=== PATIENT | female | born 1940 | race Two or more races ===

== ENCOUNTER 2016-08-05 18:58 | Emergency (ER) | payer BC, OTHER ==
[2016-08-05 19:34] VITALS: BMI 29.2
--- NOTE | 2016-08-05 20:09 | PDOC ---
History of Present Illness - General Chief Complaint: Nasal Bleeding Stated Complaint: BLEEDING FROM NOSE Time Seen by Provider: 08/05/16 19:31 History Source: Patient, Family Exam Limitations: Language Barrier - History of Present Illness Initial Comments: 08/05/16 19:52 76yo Female patient w/ PmHx: HTN, HLD, GERD presents to ED c/o epistaxis. Patient states symptoms began 2-3 months ago but resolved, then recurred 2-3 days ago and resolved. Patient stopped taking her Plavix 5 days ago, which she states she was prescribed years ago, but does not know why she is taking it per patient daughter. She now reports episode of nose bleeding today prior to her arrival which is now controlled. Associated sinus pressure and headache. + Antiplatelet use. Timing/Duration: intermittent, resolved prior to arrival Severity: moderate Modifying Factors: worse with: cold therapy, eating, immobilization, medication , movement, rest, other Associated Symptoms: reports: headaches Aspirin Received prior to arrival: No: no aspirin today, unknown, 81 mg x 1, 81 mg x 2, 81 mg x 3, 81 mg x 4, 325 mg x 1, provided at home, provided by EMS, provided by ED Asa Contraindications(Core Measure): Yes: Plavix Past History - Travel Traveled outside of the country in the last 30 days: No Close contact w/someone who was outside of country & ill: No - Past Medical History Allergies/Adverse Reactions: Allergies Allergy/AdvReac Type Severity Reaction Status Date / Time aspirin AdvReac Verified 08/05/16 19:24 Home Medications: Ambulatory Orders NK [No Known Home Medication] 08/05/16 Cardiac Disorders: Yes HTN: Yes Hypercholesterolemia: Yes - Psycho/Social/Smoking Cessation Hx Suicidal Ideation: No Smoking History: Never smoked Review of Systems - Review of Systems Able to Perform ROS?: Yes Is the patient limited Lithuanian proficient: No Constitutional: No: Chills, Fever HEENTM: Yes: Nose Congestion, Difficulty Swallowing. No: Eye Pain, Nose Pain, Throat Pain, Throat Swelling, Mouth Pain, Mouth Swelling Respiratory: No: Cough, Shortness of Breath, Stridor, Wheezing Cardiac (ROS): No: Chest Pain, Lightheadedness, Palpitations, Syncope, Chest Tightness ABD/GI: No: Constipated, Diarrhea, Nausea, Poor Appetite, Poor Fluid Intake, Vomiting : No: Dysuria Musculoskeletal: No: Back Pain Integumentary: No: Bruising, Erythema, Rash, Sweating Neurological: Yes: Headache. No: Numbness, Paresthesia, Seizure, Tremors, Weakness, Ataxia All Other Systems: Reviewed and Negative *Physical Exam - Vital Signs Last Vital Signs Temp Pulse Resp BP Pulse Ox 98.1 F 69 18 145/63 98 08/05/16 19:19 08/05/16 19:19 08/05/16 19:19 08/05/16 19:19 08/05/16 19:19 - Physical Exam General Appearance: Yes: Nourished, Appropriately Dressed. No: Apparent Distress, Mild Distress, Moderate Distress, Severe Distress HEENT: positive: EOMI, LUIS FERNANDO, Normal ENT Inspection, Normal Voice, Symmetrical, TMs Normal, Pharynx Normal, Nasal Congestion, Sinus Tenderness. negative: Pharyngeal Erythema, Tonsillar Exudate, Tonsillar Erythema, Rhinorrhea, TM Bulging, TM Dull, TM Erythema Neck: positive: Trachea midline, Supple. negative: Rigid, Stridor, Lymphadenopathy (R), Lymphadenopathy (L) Respiratory/Chest: positive: Lungs Clear, Normal Breath Sounds. negative: Chest Tender, Respiratory Distress, Accessory Muscle Use, Labored Respiration, Rapid RR, Stridor, Wheezing Cardiovascular: positive: Regular Rhythm, Regular Rate. negative: Edema, JVD, Murmur Gastrointestinal/Abdominal: positive: Normal Bowel Sounds, Soft. negative: Distended, Guarding, Rebound, Tenderness Musculoskeletal: positive: Normal Inspection. negative: CVA Tenderness Extremity: positive: Normal Capillary Refill, Normal Inspection, Normal Range of Motion. negative: Pedal Edema, Swelling Integumentary: positive: Normal Color, Dry, Warm. 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 NML intact, Fully Oriented, Alert, Normal Mood/ Affect, Normal Response, Motor Strength 5/5 ED Treatment Course - LABORATORY CBC & Chemistry Diagram: 08/05/16 20:05 08/05/16 20:05 - RADIOLOGY Radiology Studies Ordered: Category Date Time Status HEAD CT WITHOUT CONTRAST [CT] Stat CT Scan 08/05/16 19:[address] W/O CONTRAST [CT] Stat CT Scan 08/05/16 19:49 Ordered *DC/Admit/Observation/Transfer Diagnosis at time of Disposition: Recurrent epistaxis Headache Qualifiers: Headache type: unspecified Headache chronicity pattern: acute headache Intractability: not intractable Qualified Code(s): R51 - Headache - Discharge Dispostion Disposition: HOME Condition at time of disposition: Improved Admit: No - Patient Instructions Printed Discharge Instructions: DI for Nosebleed Additional Instructions: FOLLOW UP WITH DR. WASHINGTON. CALL TO SCHEDULE APPOINTMENT. CONTINUE TO TAKE YOUR MEDICATIONS PRESCRIBED. RETURN IF SYMPTOMS WORSEN OR ANY CONCERNS FOR FURTHER EVALUATION. IF NOSE BLEED OCCURS AGAIN, PINCH NOSE AND HOLD FOR 20 MINS WHILE LEANING FORWARD, YOU MAY ALSO APPLY COLD COMPRESS TO BRIDGE OF NOSE WHILE LEANING FORWARD. RETURN IF SYMPTOMS WORSEN, OR ANY CONCERNS FOR FURTHER EVALUATION. Print Language: MONGOLIAN
[2016-08-05 20:25] LABS: MCH 27.4 pg (25.7-33.7); MCHC 32.7 g/dl (32.0-36.0); MEAN PLT VOLUME 8.3 fl (7.5-11.1); PLATELET COUNT 257 K/MM3 (134-434); RDW 14.3 % (11.6-15.6); URINE APPEARANCE CLEAR; URINE BILIRUBIN NEGATIVE (NEGATIVE); URINE BLOOD 2+ (NEGATIVE); URINE COLOR STRAW; URINE GLUCOSE (UA) NEGATIVE (NEGATIVE); URINE KETONE NEGATIVE (NEGATIVE); URINE LEUK ESTERASE NEGATIVE (NEGATIVE); URINE NITRITE NEGATIVE (NEGATIVE); URINE PROTEIN NEGATIVE (NEGATIVE); URINE UROBILINOGEN NEGATIVE E.U./dl (0.2-1.0); WHITE BLOOD COUNT 7.9 K/mm3 (4.0-10.0)
[2016-08-05 20:26] LABS: URINE BACTERIA RARE /hpf (NONE SEEN); URINE MUCUS RARE; URINE RBC 9 /hpf (0-3); URINE WBC 1 /hpf (3-5)
[2016-08-05 20:39] LABS: INR 1.12 (0.82-1.09); PROTHROMBIN TIME (PATIENT) 12.3 SEC (9.98-11.88)
[2016-08-05 20:41] LABS: ACTIVATED PTT 35.1 SECONDS (26.9-34.4)
[2016-08-05 21:00] LABS: PLATELET ESTIMATE ADEQUATE (NORMAL)
[2016-08-05 21:08] LABS: ANION GAP 10 (8-16); BILIRUBIN,TOTAL 0.3 mg/dL (0.2-1.0); CALCIUM 9.9 mg/dL (8.5-10.1); CO2 27 mmol/L (21-32); CREATININE 0.9 mg/dL (0.55-1.02); GLUCOSE,RANDOM 117 mg/dL (74-106); SGOT/AST 20 U/L (15-37); SGPT/ALT 23 U/L (12-78); TOT PROT 7.7 g/dl (6.4-8.2)
[2016-08-05 21:09] LABS: ALK PHOS 89 U/L (45-117)
[2016-08-05 21:54] VITALS: BP 135/80; PULSE 87; TEMP 98.3
== END 2016-08-05 21:54 | disposition home or self-care (01) ==
LOC: JER 18:58
DX: R04.0 Epistaxis (principal); R51 Headache; E78.00 Pure hypercholesterolemia, unspecified; K21.9 Gastro-esophageal reflux disease without esophagitis
CPT/HCPCS: 36415; 70450-TC; 70486-TC; 80053; 81003; 81015; 85025; 85610; 85730; 99282-25

== ENCOUNTER 2018-11-13 23:08 | Emergency (ER) | payer OTHER ==
[2018-11-13 23:15] VITALS: BP 151/69; PULSE 54; TEMP 98.2; BMI 28.5
--- NOTE | 2018-11-13 23:46 | PDOC ---
History of Present Illness - General Chief Complaint: Edema Stated Complaint: SENT BY PCP/LT LOWER LEG SWELLING - History of Present Illness Initial Comments: The pt is an 78F w/ a history of HTN, HLD, GERD, s/p thyroidectomy who presents for evaluation for several days of LLE swelling and anterior LLE pain who was evaluated at an urgent care tonight and was sent for concern of DVT. Pt reports history of BLE swelling that is intermittent, waxes and wanes, but is never associated with leg pain. Denies a history of DM, neuropathy, or recent injury/fall. She reports LLE leg pain that is 'pinching'/tingling, anterior lower leg pain that does not radiate, is not exacerbated or alleviated by anything she can identify. 11/13/18 23:46 Past History - Past Medical History Allergies/Adverse Reactions: Allergies Allergy/AdvReac Type Severity Reaction Status Date / Time aspirin AdvReac Verified 11/13/18 23:16 Home Medications: Ambulatory Orders Brimonidine Tartrate/Timolol [Combigan Eye Drops] 5 ml OP DAILY 11/14/18 Brinzolamide [Azopt] 5 ml OP DAILY 11/14/18 Bromfenac Sodium [Bromsite] 5 ml OP DAILY 11/14/18 Clopidogrel Bisulfate [Clopidogrel] 75 mg PO DAILY 11/14/18 Levothyroxine [Synthroid -] 75 mcg PO DAILY 11/14/18 Losartan/Hydrochlorothiazide [Losartan-Hctz 100-25 mg Tab] 1 each PO DAILY 11/14 Meclizine HCl 12.5 mg PO DAILY 11/14/18 Metoprolol Succinate 25 mg PO DAILY 11/14/18 Raloxifene HCl 60 mg PO DAILY 11/14/18 Simvastatin 20 mg PO DAILY 11/14/18 Cardiac Disorders: Yes COPD: No HTN: Yes Hypercholesterolemia: Yes - Suicide/Smoking/Psychosocial Hx Smoking History: Never smoked Have you smoked in the past 12 months: No Information on smoking cessation initiated: No Hx Alcohol Use: No Drug/Substance Use Hx: No Review of Systems - Review of Systems Able to Perform ROS?: Yes Comments:: GENERAL/CONSTITUTIONAL: No fever or chills. No weakness HEAD, EYES, EARS, NOSE AND THROAT: No change in vision. No ear pain or discharge. No sore throat CARDIOVASCULAR: No chest pain or shortness of breath RESPIRATORY: Denies cough, hemoptysis GASTROINTESTINAL: No nausea, vomiting, diarrhea or constipation GENITOURINARY: No dysuria, frequency, or change in urination MUSCULOSKELETAL: +OA SKIN: No rash NEUROLOGIC: No headache, vertigo, loss of consciousness, or change in strength/ sensation ENDOCRINE: No increased thirst. No abnormal weight change HEMATOLOGIC/LYMPHATIC: No anemia, easy bleeding, or history of blood clots ALLERGIC/IMMUNOLOGIC: No hives or skin allergy 11/13/18 23:46 Is the patient limited Martiniquais proficient: No *Physical Exam - Vital Signs Last Vital Signs Temp Pulse Resp BP Pulse Ox 98.2 F 54 L 18 151/69 98 11/13/18 23:12 11/13/18 23:12 11/13/18 23:12 11/13/18 23:12 11/13/18 23:12 - Physical Exam Comments: GENERAL: Awake, alert, and oriented to person/place/time, in no acute distress HEAD: No signs of trauma, normocephalic, atraumatic EYES: PERRLA, EOMI, sclera anicteric, conjunctiva clear ENT: Hearing grossly normal, nares patent, oropharynx clear without exudates. Moist mucosa LUNGS: No distress, speaks in full sentences, clear to auscultation bilaterally HEART: Regular rate and rhythm, normal S1 and S2, no murmurs appreciated, peripheral pulses normal and equal bilaterally ABDOMEN: Soft, nontender, normoactive bowel sounds. No guarding, no rebound EXTREMITIES: LLE swelling to mid-spain w/ anterior TTP; R foot swelling; Moves all extremities independently NEUROLOGICAL: Cranial nerves II through XII grossly intact. Normal speech, normal gait, no focal sensorimotor deficits SKIN: Warm, Dry 11/13/18 23:46 ED Treatment Course - LABORATORY CBC & Chemistry Diagram: 11/14/18 00:31 11/14/18 00:31 Medical Decision Making - Medical Decision Making The pt is an 78F w/ a history of HTN, HLD, GERD, s/p thyroidectomy who presents for evaluation for several days of LLE swelling and anterior LLE pain who [facility] concern of [facility]. ED Course Labs BLE duplex to r/o DVT 11/14/18 00:12 US w/o DVT No leukocytosis No anemia 11/14/18 01:30 Lytes unremarkable LFTs wnl TSH wnl No KELI BNP wnl Plan for D/C w/ PCP f/u Discharge instructions and return precautions given Pt in agreement and verbalized understanding Dispo: home *DC/Admit/Observation/Transfer Diagnosis at time of Disposition: Leg swelling - Discharge Dispostion Disposition: HOME Condition at time of disposition: Stable Decision to Admit order: No - Referrals Referrals: Arely Almeida [Primary Care Provider] - - Patient Instructions Printed Discharge Instructions: DI for Peripheral Edema, Unilateral Additional Instructions: You were seen in the Emergency Department for evaluation of left lower extremity swelling. Your ultrasound was negative for blood clot. Your labs were unremarkable. Maintain your follow up with your primary care provider within a week. Review the handout provided at discharge. Return to the Emergency Department if you develop fevers/chills, chest pain, trouble breathing, worsening swelling, increased pain, lightheadedness, worsening symptom, or any/ new concerning symptoms. - Post Discharge Activity
--- NOTE | 2018-11-14 00:47 | PDOC ---
Documentation entered by Srinivas Mitchell SCRIBE, acting as scribe for Dayana Mathis DO. Dayana Mathis DO: This documentation has been prepared by the Paula mcdermott Xhesika, SCRIBE, under my direction and personally reviewed by me in its entirety. I confirm that the documentation accurately reflects all work, treatment, procedures, and medical decision making performed by me. Attending Attestation - Resident Resident Name: [email or web address] - ED Attending Attestation I have performed the following: I have examined & evaluated the patient, The case was reviewed & discussed with the resident, I agree w/resident's findings & plan, Exceptions are as noted - HPI HPI: 11/14/18 00:50 The patient is an 78 year old female, with a significant PMH of HLD, HTN, and GERD (s/p thyroidectomy) who presents to the emergency department with 2 days of bilateral lower extremity edema. The patient states her pain is intermittent and is associated with anterior LLE pain. The patient states she went to urgent care and was advised to come to the ED for ultrasound and rule out DVT. The patient denies any history of DM, neuropathy, or recent injury/fall. The patient denies chest pain, shortness of breath, headache and dizziness. Denies fever, chills, nausea, vomit, diarrhea and constipation. Denies dysuria, frequency, urgency and hematuria. Allergies: NKA PCP: Arely Santiago - Physicial Exam PE: 11/14/18 00:50 GENERAL: Awake, alert, and fully oriented, in no acute distress NECK: Normal ROM, supple, no lymphadenopathy, JVD, or masses LUNGS: Breath sounds equal, clear to auscultation bilaterally. No wheezes, and no crackles HEART: Regular rate and rhythm, normal S1 and S2, no murmurs, rubs or gallops ABDOMEN: Soft, nontender, normoactive bowel sounds. No guarding, no rebound. No masses EXTREMITIES: (+) mild bilateral lower extremity edema L >R. Normal range of motion, no edema. No clubbing or cyanosis. No cords, erythema, or tenderness NEUROLOGICAL: Cranial nerves II through XII grossly intact. Normal speech, normal gait SKIN: Warm, Dry, normal turgor, no rashes or lesions noted. - Medical Decision Making 11/14/18 00:37 I, Dr. Dayana Mahtis, DO, attest that this document has been prepared under my direction and personally reviewed by me in its entirety. I further attest, that it accurately reflects all work, treatment, procedures and medical decision -making performed by me. 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
[2018-11-14 01:10] LABS: BASO % 0.6 % (0-2.0); HEMOGLOBIN 10.2 GM/dL (10.7-15.3); PLATELET COUNT 198 K/MM3 (134-434); WHITE BLOOD COUNT 4.6 K/mm3 (4.0-10.0)
[2018-11-14 01:17] LABS: EOS % 2.6 % (0-4.5); HEMATOCRIT 31.4 % (32.4-45.2); LYMPH % 41.9 % (8-40); MCH 28.3 pg (25.7-33.7); MCHC 32.5 g/dl (32.0-36.0); MONO % 13.7 % (3.8-10.2); NEUT % 41.2 % (42.8-82.8); RBC 3.61 M/mm3 (3.60-5.2); RDW 14.1 % (11.6-15.6)
[2018-11-14 01:42] LABS: ALBUMIN 3.4 g/dl (3.4-5.0); BILIRUBIN,TOTAL 0.2 mg/dL (0.2-1); BLOOD UREA NITROGEN 34.1 mg/dL (7-18); CALCIUM 7.4 mg/dL (8.5-10.1); CREATININE 1.1 mg/dL (0.55-1.3); N-TERMINAL BNP 368.8 pg/ml (5-450); POTASSIUM 3.9 mmol/L (3.5-5.1)
== END 2018-11-14 02:11 | disposition home or self-care (01) ==
LOC: JER 23:08
DX: M79.89 Other specified soft tissue disorders (principal); I10 Essential (primary) hypertension; E78.5 Hyperlipidemia, unspecified; K21.9 Gastro-esophageal reflux disease without esophagitis
CPT/HCPCS: 36415; 80053; 83880; 84443; 85025; 93970-TC; 99281-25

== ENCOUNTER 2018-12-02 21:20 | Inpatient (IN) | payer OTHER ==
--- NOTE | 2018-12-02 21:23 | PDOC ---
Rapid Medical Evaluation Chief Complaint: Pain Time Seen by Provider: 12/02/18 21:22 Medical Evaluation: Allergies Allergy/AdvReac Type Severity Reaction Status Date / Time aspirin AdvReac Verified 11/13/18 23:16 12/02/18 21:22 I have performed a brief in-person evaluation of this patient. The patient presents with a chief complaint of: abdominal pain today- sent from Pertinent physical exam findings: epigastric tenderness. No guarding I have ordered the following: abd w/u The patient will proceed to the ED for further evaluation. Discharge Disposition - Diagnosis Epigastric pain - Referrals - Patient Instructions - Post Discharge Activity
[2018-12-02 21:26] VITALS: BMI 27.1
[2018-12-02] MEDS ORDERED: SODIUM CHLORIDE 1,000 ML IV STA (23:26)
[2018-12-02] MEDS ORDERED: ONDANSETRON 4 MG/2 ML VIAL IVPUSH ONE (23:26)
[2018-12-02 23:52] LABS: BASO % 0.8 % (0-2.0); HEMATOCRIT 31.2 % (32.4-45.2); HEMOGLOBIN 10.5 GM/dL (10.7-15.3); LYMPH % 23.3 % (8-40); MCH 28.8 pg (25.7-33.7); MCHC 33.6 g/dl (32.0-36.0); MEAN CELL VOLUME 85.9 fl (80-96); MEAN PLT VOLUME 8.6 fl (7.5-11.1); MONO % 4.2 % (3.8-10.2); NEUT % 71.7 % (42.8-82.8); PLATELET COUNT 198 K/MM3 (134-434); RBC 3.63 M/mm3 (3.60-5.2); WHITE BLOOD COUNT 7.6 K/mm3 (4.0-10.0)
[2018-12-03] MEDS ORDERED: ONDANSETRON 4 MG/2 ML VIAL ONE (00:22)
[2018-12-03 00:24] LABS: BILIRUBIN,TOTAL 0.4 mg/dL (0.2-1); BLOOD UREA NITROGEN 29.9 mg/dL (7-18); CALCIUM 9.6 mg/dL (8.5-10.1); CREATININE 1.2 mg/dL (0.55-1.3); POTASSIUM 3.8 mmol/L (3.5-5.1); TOT PROT 7.5 g/dl (6.4-8.2)
[2018-12-03] MEDS ORDERED: morphine CARPU-JECT 2 MG/1 ML DISP.SYRIN IVPUSH ONE (00:57)
[2018-12-03] MEDS ORDERED: MORPHINE SULFATE 2 MG/ML VIAL ONE (01:01)
--- NOTE | 2018-12-03 02:00 | PDOC ---
Documentation entered by Srinivas Mitchell SCRIBE, acting as scribe for Jrerica Lal MD. Jerrica Lal MD: This documentation has been prepared by the Paula mcdermott Xhesika, SCRIBE, under my direction and personally reviewed by me in its entirety. I confirm that the documentation accurately reflects all work, treatment, procedures, and medical decision making performed by me. History of Present Illness - General Chief Complaint: Pain Stated Complaint: NAUSEA ADB PAIN Time Seen by Provider: 12/02/18 21:22 History Source: Patient Exam Limitations: No Limitations - History of Present Illness Initial Comments: 12/02/18 23:18 The patient is an 78 year old female, with a significant PMH of HLD, HTN, and GERD (s/p thyroidectomy) who presents to the emergency department with abdominal pain, nausea, vomiting, and diarrhea since this morning. Pt notes she went to urgent care and was advised to come to the ED for further evaluations. Patient states she endorses diffuse epigastric pain and chills, secondary to her symptoms. The patient denies chest pain, shortness of breath, headache and dizziness. Denies fever, and constipation. Denies dysuria, frequency, urgency and hematuria. Allergies: Aspirin PCP: Arely Santiago Past History - Past Medical History Allergies/Adverse Reactions: Allergies Allergy/AdvReac Type Severity Reaction Status Date / Time aspirin AdvReac Verified 12/02/18 21:26 Home Medications: Ambulatory Orders Brimonidine Tartrate/Timolol [Combigan Eye Drops] 5 ml OP DAILY 11/14/18 Brinzolamide [Azopt] 5 ml OP DAILY 11/14/18 Bromfenac Sodium [Bromsite] 5 ml OP DAILY 11/14/18 Clopidogrel Bisulfate [Clopidogrel] 75 mg PO DAILY 11/14/18 Levothyroxine [Synthroid -] 75 mcg PO DAILY 11/14/18 Losartan/Hydrochlorothiazide [Losartan-Hctz 100-25 mg Tab] 1 each PO DAILY 11/14 Meclizine HCl 12.5 mg PO DAILY 11/14/18 Metoprolol Succinate 25 mg PO DAILY 11/14/18 Raloxifene HCl 60 mg PO DAILY 11/14/18 Simvastatin 20 mg PO DAILY 11/14/18 Cardiac Disorders: Yes COPD: No HTN: Yes Hypercholesterolemia: Yes Thyroid Disease: Yes - Suicide/Smoking/Psychosocial Hx Smoking History: Never smoked Have you smoked in the past 12 months: No Hx Alcohol Use: No Drug/Substance Use Hx: No Review of Systems - Review of Systems Able to Perform ROS?: Yes Comments:: 12/02/18 23:18 GENERAL/CONSTITUTIONAL: (+) chillsNo fever. No weakness. HEAD, EYES, EARS, NOSE AND THROAT: No change in vision. No ear pain or discharge. No sore throat. CARDIOVASCULAR: No chest pain or shortness of breath. RESPIRATORY: No cough, wheezing, or hemoptysis. GASTROINTESTINAL: (+) nausea, vomiting, diarrhea. No constipation. GENITOURINARY: No dysuria, frequency, or change in urination. MUSCULOSKELETAL: (+) abdominal pain. (+) epigastric pain. No joint or muscle swelling or pain. No neck or back pain. SKIN: No rash NEUROLOGIC: No headache, vertigo, loss of consciousness, or change in strength/ sensation. ENDOCRINE: No increased thirst. No abnormal weight change. HEMATOLOGIC/LYMPHATIC: No anemia, easy bleeding, or history of blood clots. ALLERGIC/IMMUNOLOGIC: No hives or skin allergy. *Physical Exam - Vital Signs Last Vital Signs Temp Pulse Resp BP Pulse Ox 98 F 62 18 152/67 12/02/18 21:22 12/02/18 21:22 12/02/18 21:22 12/02/18 21:22 - Physical Exam Comments: 12/02/18 23:18 GENERAL: Awake, alert, and fully oriented. (+) ill appearing HEAD: No signs of trauma EYES: PERRLA, EOMI, sclera anicteric, conjunctiva clear ENT: Auricles normal inspection, hearing grossly normal, nares patent, oropharynx clear without exudates. Moist mucosa NECK: Normal ROM, supple, no lymphadenopathy, JVD, or masses LUNGS: Breath sounds equal, clear to auscultation bilaterally. No wheezes, and no crackles HEART: Regular rate and rhythm, normal S1 and S2, no murmurs, rubs or gallops ABDOMEN: (+) epigastric pain. (+) abdominal tenderness. Soft, nontender, normoactive bowel sounds. No guarding, no rebound. No masses EXTREMITIES:(+) pedal edema bilaterally. Normal range of motion. No clubbing or cyanosis. No cords, erythema, or tenderness NEUROLOGICAL: Cranial nerves II through XII grossly intact. Normal speech SKIN: Warm, Dry, normal turgor, no rashes or lesions noted. ED Treatment Course - LABORATORY CBC & Chemistry Diagram: 12/02/18 23:30 12/02/18 23:30 - ADDITIONAL ORDERS Additional order review: Laboratory Results 12/02/18 12/02/18 23:30 23:30 Sodium 140 Potassium 3.8 Chloride 106 Carbon Dioxide 26 Anion Gap 8 BUN 29.9 H Creatinine 1.2 Est GFR (CKD-EPI)AfAm 49.43 Est GFR (CKD-EPI)NonAf 42.65 Random Glucose 140 H Calcium 9.6 Total Bilirubin 0.4 AST 20 ALT 20 Alkaline Phosphatase 76 Total Protein 7.5 Albumin 4.0 Lipase Cancelled 163 12/02/18 23:30 RBC 3.63 MCV 85.9 MCHC 33.6 RDW 14.0 MPV 8.6 Neutrophils % 71.7 D Lymphocytes % 23.3 D Monocytes % 4.2 Eosinophils % 0.0 D Basophils % 0.8 Medical Decision Making - Medical Decision Making 12/03/18 00:24 1-year-old female presents with severe abdominal pain, nausea and vomiting since earlier today Diffuse abdominal tenderness on exam. concern for appendicitis, colitis,small bowel obstruction plan ct scan abd/pel *DC/Admit/Observation/Transfer Diagnosis at time of Disposition: Epigastric pain - Referrals Referrals: Arely Almeida [Primary Care Provider] - - Patient Instructions - Post Discharge Activity
[2018-12-03 04:16] LABS: HYALINE CASTS 1 /lpf (0-8); URINE APPEARANCE CLEAR; URINE BILIRUBIN NEGATIVE (NEGATIVE); URINE COLOR YELLOW; URINE GLUCOSE (UA) NEGATIVE (NEGATIVE); URINE KETONE NEGATIVE (NEGATIVE); URINE LEUK ESTERASE NEGATIVE (NEGATIVE); URINE NITRITE NEGATIVE (NEGATIVE); URINE PROTEIN NEGATIVE (NEGATIVE); URINE RBC 2 /hpf (0-4); URINE UROBILINOGEN 0.2 mg/dL (0.2-1.0); URINE WBC 1 /hpf (0-5)
--- NOTE | 2018-12-03 05:28 | PDOC ---
*Physical Exam - Vital Signs Last Vital Signs Temp Pulse Resp BP Pulse Ox 98 F 60 16 148/47 L 99 12/02/18 21:22 12/03/18 03:55 12/03/18 03:55 12/03/18 03:55 12/03/18 03:55 ED Treatment Course - LABORATORY CBC & Chemistry Diagram: 12/02/18 23:30 12/02/18 23:30 - ADDITIONAL ORDERS Additional order review: Laboratory Results 12/03/18 12/02/18 12/02/18 03:45 23:30 23:30 Sodium 140 Potassium 3.8 Chloride 106 Carbon Dioxide 26 Anion Gap 8 BUN 29.9 H Creatinine 1.2 Est GFR (CKD-EPI)AfAm 49.43 Est GFR (CKD-EPI)NonAf 42.65 Random Glucose 140 H Calcium 9.6 Total Bilirubin 0.4 AST 20 ALT 20 Alkaline Phosphatase 76 Creatine Kinase Troponin I Total Protein 7.5 Albumin 4.0 Lipase Cancelled 163 Urine Color Yellow Urine Appearance Clear Urine pH 5.0 Ur Specific [place] 1.013 Urine Protein Negative Urine Glucose (UA) Negative Urine Ketones Negative Urine Blood Trace Urine Nitrite Negative Urine Bilirubin Negative Urine Urobilinogen 0.2 Ur Leukocyte Esterase Negative Urine WBC (Auto) 1 Urine RBC (Auto) 2 Urine Casts (Auto) 1 U Epithel Cells (Auto) 1.0 Urine Bacteria (Auto) 54.0 12/02/18 23:30 Sodium Potassium Chloride Carbon Dioxide Anion Gap BUN Creatinine Est GFR (CKD-EPI)AfAm Est GFR (CKD-EPI)NonAf Random Glucose Calcium Total Bilirubin AST ALT Alkaline Phosphatase Creatine Kinase 149 Troponin I < 0.02 Total Protein Albumin Lipase Urine Color Urine Appearance Urine pH Ur Specific [place] Urine Protein Urine Glucose (UA) Urine Ketones Urine Blood Urine Nitrite Urine Bilirubin Urine Urobilinogen Ur Leukocyte Esterase Urine WBC (Auto) Urine RBC (Auto) Urine Casts (Auto) U Epithel Cells (Auto) Urine Bacteria (Auto) 12/02/18 23:30 RBC 3.63 MCV 85.9 MCHC 33.6 RDW 14.0 MPV 8.6 Neutrophils % 71.7 D Lymphocytes % 23.3 D Monocytes % 4.2 Eosinophils % 0.0 D Basophils % 0.8 - RADIOLOGY Radiology Studies Ordered: Category Date Time Status ABDOMEN & PELVIS CT W/O CONTR [CT] Stat CT Scan 12/03/18 02:54 Taken - Medications Given in the ED: ED Medications Discontinued Medications Generic Name Dose Route Start Last Admin Trade Name Jakub PRN Reason Stop Dose Admin Sodium Chloride 1,000 mls @ 1,000 mls/hr 12/02/18 23:26 12/03/18 00:15 Normal Saline - IV 12/03/18 00:25 1,000 mls/hr ASDIR STA Administration Morphine Sulfate 2 mg 12/03/18 00:57 12/03/18 01:08 Morphine Injection - IVPUSH 12/03/18 00:58 2 mg ONCE ONE Administration Ondansetron HCl 4 mg 12/02/18 23:26 12/03/18 00:15 Zofran Injection IVPUSH 12/02/18 23:27 4 mg ONCE ONE Administration Medical Decision Making - Medical Decision Making 12/03/18 05:23 CT scan shows possible transition point, radiology states they cannot rule out early SBO Due to dilated small bowel loops Case presented to surgery by emergency department resident who does not feel patient has an acute bowel obstruction is recommending admission to medical team with surgical consultation 12/03/18 05:27 *DC/Admit/Observation/Transfer Diagnosis at time of Disposition: Epigastric pain, Vomiting - Discharge Dispostion Condition at time of disposition: Fair - Referrals Referrals: Arely Almeida [Primary Care Provider] - - Patient Instructions - Post Discharge Activity
[2018-12-03] MEDS ORDERED: MORPHINE SULFATE 2 MG/ML VIAL IVPUSH PRN (06:23)
[2018-12-03] MEDS ORDERED: ONDANSETRON 4 MG/2 ML VIAL IVPUSH PRN (06:25)
--- NOTE | 2018-12-03 06:32 | HP ---
CHIEF COMPLAINT: diffuse abd pain PCP: HISTORY OF PRESENT ILLNESS: 78F w/ pmh arthritis, HTN, HLD, hypothyroidism 2/2 thyroidectomy presented to [facility] w/ complaint of diffuse abdominal pain w/a NBNB emesis, frequent belching , abd distension x1d. Tried eating last night but immediately vomited. Abd pain was 10/10 now 4/10 in the ED. Currently, has appetite but afraid to cause abd pain. Had diarrhea in evening of 12/02/18. Denies h/o abd pain w/a abd distension. Denies F/C, CP, SOB, dysuria. H/o of lap arvin(early ). HPI obtained with the aide of pt's adult granddaughter, at bedside. ER course was notable for: (1) CT A/P -- proximal jejunal distension Recent Travel: PAST MEDICAL HISTORY: arthritis, HTN, HLD, hypothyroidism 2/2 thyroidectomy PAST SURGICAL HISTORY: cataract, hand, thyroid lap arvin(early ) Social History: Smoking: denies Alcohol: denies Drugs: denies Family History: daughter w/ ?carcinoid Ca, sister w/ ovarian Ca Allergies: aspirin Adverse Reaction (Verified 12/02/18 21:26) abdominal pain HOME MEDICATIONS: Home Medications Medication Instructions Recorded Brimonidine Tartrate/Timolol 5 ml OP DAILY 11/14/18 [Combigan Eye Drops] Brinzolamide [Azopt] 5 ml OP DAILY 11/14/18 Bromfenac Sodium [Bromsite] 5 ml OP DAILY 11/14/18 Clopidogrel Bisulfate [Clopidogrel] 75 mg PO DAILY 11/14/18 Levothyroxine [Synthroid -] 75 mcg PO DAILY 11/14/18 Losartan/Hydrochlorothiazide 1 each PO DAILY 11/14/18 [Losartan-Hctz 100-25 mg Tab] Meclizine HCl 12.5 mg PO DAILY 11/14/18 Metoprolol Succinate 25 mg PO DAILY 11/14/18 Raloxifene HCl 60 mg PO DAILY 11/14/18 Simvastatin 20 mg PO DAILY 11/14/18 REVIEW OF SYSTEMS CONSTITUTIONAL: Absent: fever, chills, diaphoresis, generalized weakness, malaise, loss of appetite, weight change HEENT: Absent: rhinorrhea, nasal congestion, throat pain, throat swelling, difficulty swallowing, mouth swelling, ear pain, eye pain, visual changes CARDIOVASCULAR: Absent: chest pain, syncope, palpitations, irregular heart rate, lightheadedness , peripheral edema RESPIRATORY: Absent: cough, shortness of breath, dyspnea with exertion, wheezing, stridor, hemoptysis GASTROINTESTINAL: abdominal distension, nausea, vomiting, diarrhea Absent: abdominal pain, constipation, melena, hematochezia GENITOURINARY: Absent: dysuria, frequency, urgency, hesitancy, hematuria, flank pain, genital pain MUSCULOSKELETAL: Absent: myalgia, arthralgia, joint swelling, back pain, neck pain SKIN: Absent: rash, itching, pallor HEMATOLOGIC/IMMUNOLOGIC: Absent: easy bleeding, easy bruising, lymphadenopathy, frequent infections ENDOCRINE: Absent: unexplained weight gain, unexplained weight loss NEUROLOGIC: Absent: headache, focal weakness or paresthesias, dizziness, unsteady gait, seizure, mental status changes, bladder or bowel incontinence PHYSICAL EXAMINATION Vital Signs - 24 hr 12/02/18 12/03/18 21:22 03:55 Temperature 98 F Pulse Rate 62 Pulse Rate [ 60 Left Radial] Respiratory 18 16 Rate Blood Pressure 152/67 Blood Pressure 148/47 L [Left Arm] O2 Sat by Pulse 99 Oximetry (%) GENERAL: Awake, alert, and fully oriented, in no acute distress. HEAD: Normal with no signs of trauma. EYES: extraocular movements intact, sclera anicteric, conjunctiva clear. EARS, NOSE, THROAT: Ears normal, nares patent, oropharynx clear without exudates. Moist mucous membranes. NECK: Normal range of motion, supple without lymphadenopathy, JVD, or masses. LUNGS: Breath sounds equal, clear to auscultation bilaterally. No wheezes, and no crackles. No accessory muscle use. HEART: Regular rate and rhythm, normal S1 and S2 without murmur, rub or gallop. ABDOMEN: Soft, nontender, not distended, normoactive bowel sounds, nontympanic to percussion, no guarding, no rebound, no masses. Lap incision are barely discernible. MUSCULOSKELETAL: Normal range of motion at all joints. No bony deformities or tenderness. No CVA tenderness. UPPER EXTREMITIES: 2+ pulses, warm, well-perfused. No cyanosis. No clubbing. No peripheral edema. LOWER EXTREMITIES: 2+ pulses, warm, well-perfused. No calf tenderness. Mild nonpitting peripheral edema. NEUROLOGICAL: Normal speech. Able to move all four extremities spontaneously PSYCHIATRIC: Cooperative. Good eye contact. Appropriate mood and affect. SKIN: Warm, dry, normal turgor, no rashes or lesions noted, normal capillary refill. Laboratory Results - last 24 hr 12/02/18 12/02/18 12/02/18 23:30 23:30 23:30 WBC 7.6 RBC 3.63 Hgb 10.5 L Hct 31.2 L MCV 85.9 MCH 28.8 MCHC 33.6 RDW 14.0 Plt Count 198 MPV 8.6 Absolute Neuts (auto) 5.5 Neutrophils % 71.7 D Lymphocytes % 23.3 D Monocytes % 4.2 Eosinophils % 0.0 D Basophils % 0.8 Nucleated RBC % 0 Sodium 140 Potassium 3.8 Chloride 106 Carbon Dioxide 26 Anion Gap 8 BUN 29.9 H Creatinine 1.2 Est GFR (CKD-EPI)AfAm 49.43 Est GFR (CKD-EPI)NonAf 42.65 Random Glucose 140 H Lactic Acid Calcium 9.6 Total Bilirubin 0.4 AST 20 ALT 20 Alkaline Phosphatase 76 Creatine Kinase 149 Troponin I < 0.02 Total Protein 7.5 Albumin 4.0 Lipase 163 Urine Color Urine Appearance Urine pH Ur Specific [place] Urine Protein Urine Glucose (UA) Urine Ketones Urine Blood Urine Nitrite Urine Bilirubin Urine Urobilinogen Ur Leukocyte Esterase Urine WBC (Auto) Urine RBC (Auto) Urine Casts (Auto) U Epithel Cells (Auto) Urine Bacteria (Auto) 12/02/18 12/03/18 12/03/18 23:30 03:45 05:30 WBC RBC Hgb Hct MCV MCH MCHC RDW Plt Count MPV Absolute Neuts (auto) Neutrophils % Lymphocytes % Monocytes % Eosinophils % Basophils % Nucleated RBC % Sodium Potassium Chloride Carbon Dioxide Anion Gap BUN Creatinine Est GFR (CKD-EPI)AfAm Est GFR (CKD-EPI)NonAf Random Glucose Lactic Acid 1.5 Calcium Total Bilirubin AST ALT Alkaline Phosphatase Creatine Kinase Troponin I Total Protein Albumin Lipase Cancelled Urine Color Yellow Urine Appearance Clear Urine pH 5.0 Ur Specific [place] 1.013 Urine Protein Negative Urine Glucose (UA) Negative Urine Ketones Negative Urine Blood Trace Urine Nitrite Negative Urine Bilirubin Negative Urine Urobilinogen 0.2 Ur Leukocyte Esterase Negative Urine WBC (Auto) 1 Urine RBC (Auto) 2 Urine Casts (Auto) 1 U Epithel Cells (Auto) 1.0 Urine Bacteria (Auto) 54.0 ASSESSMENT/PLAN: 78F w/ pmh arthritis, HTN, HLD, hypothyroidism 2/2 thyroidectomy presenting with diffuse abd pain, abd distension, and NV possibly 2/2 partial SBO # abd pain > CT A/P(12/03/18): prelim read of proximal jejunal dilation - fu final read of CT A/AP - pain PRN: morphine - Gen Surg consult # partial SBO - serial abd exams - defer need for NGT to Surg - advance diet as per Surg - consider SBFT - NPO - IVF - replete matt Page, DO PGY-1 Medicine, PM-Float [id number] 12/03/18 Visit type - Emergency Visit Emergency Visit: Yes ED Registration Date: 12/03/18 Care time: The patient presented to the Emergency Department on the above date and was hospitalized for further evaluation of their emergent condition. - New Patient This patient is new to me today: Yes Date on this admission: 12/03/18 - Critical Care Critical Care patient: No ATTENDING PHYSICIAN STATEMENT I saw and evaluated the patient. I reviewed the resident's note and discussed the case with the resident. I agree with the resident's findings and plan as documented. SUBJECTIVE: OBJECTIVE: ASSESSMENT AND PLAN:
--- NOTE | 2018-12-03 06:38 | PN ---
Teaching Attending Note Name of Resident: Saleem Page ATTENDING PHYSICIAN STATEMENT I saw and evaluated the patient. I reviewed the resident's note and discussed the case with the resident. I agree with the resident's findings and plan as documented. SUBJECTIVE: Patient is an 78 year old woman with a PMH of HLD, HTN, and GERD (s/p thyroidectomy) who presents to the emergency department with abdominal pain, nausea, vomiting, and diarrhea since this morning. She notes she went to urgent care and was advised to come to the ER for further evaluations. Patient states she endorses diffuse epigastric pain and chills, secondary to her symptoms. The patient denies chest pain, shortness of breath, headache and dizziness. Denies fever, and constipation. Denies dysuria, frequency, urgency and hematuria. OBJECTIVE: Alert Vital Signs Period Temp Pulse Resp BP Sys/Arroyo Pulse Ox Last 24 Hr 98 F 60-62 16-18 148-152/47-67 99 HEENT: No Jaundice, eye redness or discharge, PERRLA, EOMI. Normocephalic, atraumatic. External ears are normal and hearing is grossly intact. No nasal discharge. Neck: Supple, nontender. No palpable adenopathy or thyromegaly. No JVD Chest: Good effort. Clear to auscultation and percussion. Heart: Regular. No S3, rub or murmur Abdomen: Not distended, soft, nontender and no HSM. No rebound or guarding. Normal bowel sounds. Ext: Peripheral pulses intact. No leg edema. Skin: Warm and dry. No petechiae, rash or ecchymosis. Neuro: Alert. Oriented x3. CN 2-12 grossly intact. Sensation grossly intact in all four extremities and DTR are symmetric. Psych: Appropriate mood and affect. Good insight. Current Medications Generic Name Dose Route Start Last Admin Trade Name Freq PRN Reason Stop Dose Admin Sodium Chloride 1,000 mls @ 75 mls/hr 12/03/18 06:30 Normal Saline - IV ASDIR HIWOT Morphine Sulfate 2 mg 12/03/18 06:23 Morphine Sulfate IVPUSH Q6H PRN PAIN LEVEL 6-10 Ondansetron HCl 4 mg 12/03/18 06:25 Zofran Injection IVPUSH Q6H PRN NAUSEA Home Medications Medication Instructions Recorded Brimonidine Tartrate/Timolol 5 ml OP DAILY 11/14/18 [Combigan Eye Drops] Brinzolamide [Azopt] 5 ml OP DAILY 11/14/18 Bromfenac Sodium [Bromsite] 5 ml OP DAILY 11/14/18 Clopidogrel Bisulfate [Clopidogrel] 75 mg PO DAILY 11/14/18 Levothyroxine [Synthroid -] 75 mcg PO DAILY 11/14/18 Losartan/Hydrochlorothiazide 1 each PO DAILY 11/14/18 [Losartan-Hctz 100-25 mg Tab] Meclizine HCl 12.5 mg PO DAILY 11/14/18 Metoprolol Succinate 25 mg PO DAILY 11/14/18 Raloxifene HCl 60 mg PO DAILY 11/14/18 Simvastatin 20 mg PO DAILY 11/14/18 Abnormal Lab Results 12/02/18 12/02/18 23:30 23:30 Hgb 10.5 L Hct 31.2 L BUN 29.9 H Random Glucose 140 H ASSESSMENT AND PLAN: 1. Possible small bowel obstruction - CT abdomen/pelvis shows distension of jejunum and dilated small bowel loops suggestive of SBO. ER staff spoke to the surgeon who recommended bowel rest. Will give gentle IV hydration, keep her NPO , give IV zofran and use morphine for pain control. EKG is NSR with no significant ST-T wave changes. Get HbA1c. 2. Anemia - Cause unclear. Will do basic anemia work up including serial stool guaiacs, reticulocyte count and iron studies. 3. Hypertension - Restart suitable outpatient antihypertensive drugs when clinically appropriate. Revise regimen to ensure [id number] excellent BP control and behavioral school counselors patient on the injurious effects of uncontrolled hypertension. Nonpharmacologic measures to control hypertension like weight loss , salt restriction and exercise discussed. Importance of adherence to treatment regimen and attainment of normotension emphasized. 4. DVT prophylaxis - SCD for now 5. Advance directives - Full code
[2018-12-03] MEDS: SODIUM CHLORIDE 1,000 ML IV SCH ×2 (06:52→18:05)
[2018-12-03 08:07] LABS: HEMATOCRIT 27.2 % (32.4-45.2); MCH 28.8 pg (25.7-33.7); MCHC 33.1 g/dl (32.0-36.0); MEAN CELL VOLUME 87.1 fl (80-96); MEAN PLT VOLUME 8.2 fl (7.5-11.1); PLATELET COUNT 169 K/MM3 (134-434); RBC 3.12 M/mm3 (3.60-5.2); RDW 13.9 % (11.6-15.6); WHITE BLOOD COUNT 7.1 K/mm3 (4.0-10.0)
[2018-12-03] MEDS ORDERED: POTASSIUM PHOSPHATE 20 MM in SODIUM CHLORIDE 250 ML IVPB ONE (08:30)
[2018-12-03 08:59] LABS: ALBUMIN 3.3 g/dl (3.4-5.0); BILIRUBIN,TOTAL 0.2 mg/dL (0.2-1); CREATININE 1.1 mg/dL (0.55-1.3); MAGNESIUM 2.1 mg/dL (1.8-2.4); POTASSIUM 3.5 mmol/L (3.5-5.1); TOT PROT 6.4 g/dl (6.4-8.2)
[2018-12-03 09:00] LABS: CALCIUM 9.1 mg/dL (8.5-10.1)
[2018-12-03 09:30] LABS: INR 1.18 (0.83-1.09); PROTHROMBIN TIME (PATIENT) 13.9 SEC (9.7-13.0)
[2018-12-03] MEDS ORDERED: FAMOTIDINE 20 MG/50 ML IVPB 20 MG/50 ML MG IVPB ONE ×2 (09:30→11:04)
--- NOTE | 2018-12-03 11:09 | CONSULT ---
- Consultation REQUESTING PROVIDER: Brian RAZA CONSULT REQUEST: We have been asked to surgically evaluate this patient for possible sbo. PCP:Krystle Brady HISTORY OF PRESENT ILLNESS: ISABELA who is an 78 y/o female who presented to her PCP/UC yesterday w/ 1 day of nausea and vomiting and epigastric abdominal pain; she ? had associated loose stools; her daughter states she usually has this after she eats " greasy foods " since she had a lap arvin # years ago; since arrival in the ER she states she is feeling better and has no c /o. She is passing flatus. PMHx: hypothyroid/HLD/glaucoma PSHx: lap arvin/thyroidectomy Home Medications Medication Instructions Recorded Brimonidine Tartrate/Timolol 5 ml OP DAILY 11/14/18 [Combigan Eye Drops] Brinzolamide [Azopt] 5 ml OP DAILY 11/14/18 Bromfenac Sodium [Bromsite] 5 ml OP DAILY 11/14/18 Clopidogrel Bisulfate [Clopidogrel] 75 mg PO DAILY 11/14/18 Levothyroxine [Synthroid -] 75 mcg PO DAILY 11/14/18 Losartan/Hydrochlorothiazide 1 each PO DAILY 11/14/18 [Losartan-Hctz 100-25 mg Tab] Meclizine HCl 12.5 mg PO DAILY 11/14/18 Metoprolol Succinate 25 mg PO DAILY 11/14/18 Raloxifene HCl 60 mg PO DAILY 11/14/18 Simvastatin 20 mg PO DAILY 11/14/18 Allergies Allergy/AdvReac Type Severity Reaction Status Date / Time aspirin AdvReac Verified 12/02/18 21:26 REVIEW OF SYSTEMS: CONSTITUTIONAL: Absent: fever, chills, diaphoresis, generalized weakness, malaise, loss of appetite, weight change CARDIOVASCULAR: Absent: chest pain, syncope, palpitations, irregular heart rate, lightheadedness , peripheral edema RESPIRATORY: Absent: cough, shortness of breath, dyspnea with exertion, wheezing, stridor, hemoptysis GASTROINTESTINAL: Present: abdominal pain, nausea, vomiting, diarrhea, GENITOURINARY: Absent: dysuria, frequency, urgency, hesitancy, hematuria, flank pain, genital pain MUSCULOSKELETAL: Absent: myalgia, arthralgia, joint swelling, back pain, neck pain SKIN: Absent: rash, itching, pallor HEMATOLOGIC/IMMUNOLOGIC: Absent: easy bleeding, easy bruising, lymphadenopathy NEUROLOGIC: Absent: headache, focal weakness, paresthesias, dizziness, unsteady gait, seizure, mental status changes, bladder or bowel incontinence PSYCHIATRIC: Absent: anxiety, depression, suicidal or homicidal ideation, hallucinations. PHYSICAL EXAM: GENERAL: Awake, alert, and fully oriented, in no acute distress. HEAD: Normal with no signs of trauma. EYES: sclera anicteric, conjunctiva clear. NECK: Normal ROM, supple without lymphadenopathy, JVD, or masses. ABDOMEN: Soft, nontender, not distended, normoactive bowel sounds, no guarding, no rebound, no masses. No organomegaly. No hernias. MUSCULOSKELETAL: Normal ROM at all joints. No bony deformities or tenderness. No CVA tenderness. UPPER EXTREMITIES: 2+ pulses, warm, well-perfused. No cyanosis. Cap refill <2 seconds. No peripheral edema. LOWER EXTREMITIES: 2+ pulses, warm, well-perfused. No calf tenderness. No peripheral edema. NEUROLOGICAL: Normal speech, gait not observed. PSYCH: Cooperative. Good eye contact. Appropriate mood and affect. SKIN: Warm, dry, normal turgor, no rashes or lesions noted. Vital Signs Temperature 98.0 F 12/03/18 10:54 Pulse Rate 49 L 12/03/18 10:54 Respiratory Rate 18 12/03/18 10:54 Blood Pressure 117/48 L 12/03/18 10:54 O2 Sat by Pulse Oximetry (%) 99 12/03/18 10:54 Lab Results WBC 7.1 K/mm3 (4.0-10.0) 12/03/18 07:45 RBC 3.12 M/mm3 (3.60-5.2) L 12/03/18 07:45 Hgb 9.0 GM/dL (10.7-15.3) L 12/03/18 07:45 Hct 27.2 % (32.4-45.2) L 12/03/18 07:45 MCV 87.1 fl (80-96) 12/03/18 07:45 MCHC 33.1 g/dl (32.0-36.0) 12/03/18 07:45 RDW 13.9 % (11.6-15.6) 12/03/18 07:45 Plt Count 169 K/MM3 (134-434) 12/03/18 07:45 Sodium 143 mmol/L (136-145) 12/03/18 06:24 Potassium 3.5 mmol/L (3.5-5.1) 12/03/18 06:24 Chloride 110 mmol/L (98-107) H 12/03/18 06:24 Carbon Dioxide 27 mmol/L (21-32) 12/03/18 06:24 Anion Gap 6 MMOL/L (8-16) L 12/03/18 06:24 BUN 26.0 mg/dL (7-18) H 12/03/18 06:24 Creatinine 1.1 mg/dL (0.55-1.3) 12/03/18 06:24 Random Glucose 125 mg/dL (74-106) H 12/03/18 06:24 Calcium 9.1 mg/dL (8.5-10.1) 12/03/18 06:24 INR 1.18 (0.83-1.09) H 12/03/18 07:45 CT a/p reviewed images and reports; f/u AXR's from today reviewed. 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 PLAN: Suggest NPO/IVF/serial exams and xrays; will f/u. Elliott Gtz MD FACS
[2018-12-03] MEDS ORDERED: PATIENT'S OWN MEDICATION (NON-FORMULARY) (Brimonidine Tartrate/Timolol [Combigan 0.2%-0.5% OU SCH (13:30)
[2018-12-03] MEDS ORDERED: PATIENT'S OWN MEDICATION (NON-FORMULARY) (Losartan/Hydrochlorothiazide [Losartan-Hctz 100- PO SCH (13:30)
[2018-12-03] MEDS ORDERED: PATIENT'S OWN MEDICATION (NON-FORMULARY) (Raloxifene Hcl [Raloxifene Hcl] 60 MG) PO SCH (13:30)
--- NOTE | 2018-12-03 13:31 | PN ---
Physical Exam: SUBJECTIVE: Patient seen and examined. C/o mild abdominal pain. Passing flatus regularly, has not had a bowel movement today. OBJECTIVE: Vital Signs Period Temp Pulse Resp BP Sys/Arroyo Pulse Ox Last 24 Hr 98 F-98.0 F 49-62 16-18 117-152/47-67 99-99 GENERAL: The patient is awake, alert, and fully oriented, in no acute distress. HEENT: NCAT LUNGS: Breath sounds equal, clear to auscultation bilaterally, no wheezes, no crackles, no accessory muscle use. HEART: Regular rate and rhythm, S1, S2 without murmur, rub or gallop. ABDOMEN: Mild TTP LLQ. Soft, nondistended, normoactive bowel sounds, no guarding , no masses. EXTREMITIES: 2+ pulses, warm, well-perfused, no edema. RECTAL: No ext hemorroids observed. No joaquín blood on digital exam. SKIN: Warm, dry, normal turgor, no rashes or lesions noted Laboratory Results - last 24 hr Laboratory Last Values Laboratory Last Values WBC 7.1 K/mm3 (4.0-10.0) 12/03/18 07:45 RBC 3.12 M/mm3 (3.60-5.2) L 12/03/18 07:45 Hgb 9.0 GM/dL (10.7-15.3) L 12/03/18 07:45 Hct 27.2 % (32.4-45.2) L 12/03/18 07:45 MCV 87.1 fl (80-96) 12/03/18 07:45 MCH 28.8 pg (25.7-33.7) 12/03/18 07:45 MCHC 33.1 g/dl (32.0-36.0) 12/03/18 07:45 RDW 13.9 % (11.6-15.6) 12/03/18 07:45 Plt Count 169 K/MM3 (134-434) 12/03/18 07:45 MPV 8.2 fl (7.5-11.1) 12/03/18 07:45 Absolute Neuts (auto) 5.5 K/mm3 (1.5-8.0) 12/02/18 23:30 Neutrophils % 71.7 % (42.8-82.8) D 12/02/18 23:30 Lymphocytes % 23.3 % (8-40) D 12/02/18 23:30 Monocytes % 4.2 % (3.8-10.2) 12/02/18 23:30 Eosinophils % 0.0 % (0-4.5) D 12/02/18 23:30 Basophils % 0.8 % (0-2.0) 12/02/18 23:30 Nucleated RBC % 0 % (0-0) 12/02/18 23:30 PT with INR 13.90 SEC (9.7-13.0) H 12/03/18 07:45 INR 1.18 (0.83-1.09) H 12/03/18 07:45 PTT (Actin FS) 32.0 SECONDS (25.2-36.5) 12/03/18 07:45 Sodium 143 mmol/L (136-145) 12/03/18 06:24 Potassium 3.5 mmol/L (3.5-5.1) 12/03/18 06:24 Chloride 110 mmol/L (98-107) H 12/03/18 06:24 Carbon Dioxide 27 mmol/L (21-32) 12/03/18 06:24 Anion Gap 6 MMOL/L (8-16) L 12/03/18 06:24 BUN 26.0 mg/dL (7-18) H 12/03/18 06:24 Creatinine 1.1 mg/dL (0.55-1.3) 12/03/18 06:24 Est GFR (CKD-EPI)AfAm 54.91 12/03/18 06:24 Est GFR (CKD-EPI)NonAf 47.38 12/03/18 06:24 Random Glucose 125 mg/dL (74-106) H 12/03/18 06:24 Hemoglobin A1c % 5.2 % (4.2-6.3) 12/03/18 07:45 Lactic Acid 1.5 mmol/L (0.4-2.0) 12/03/18 05:30 Calcium 9.1 mg/dL (8.5-10.1) 12/03/18 06:24 Magnesium 2.1 mg/dL (1.8-2.4) 12/03/18 06:24 Total Bilirubin 0.2 mg/dL (0.2-1) 12/03/18 06:24 AST 15 U/L (15-37) 12/03/18 06:24 ALT 18 U/L (13-61) 12/03/18 06:24 Alkaline Phosphatase 64 U/L (45-117) 12/03/18 06:24 Creatine Kinase 149 U/L (26-192) 12/02/18 23:30 Troponin I < 0.02 ng/ml (0.00-0.05) 12/02/18 23:30 Total Protein 6.4 g/dl (6.4-8.2) 12/03/18 06:24 Albumin 3.3 g/dl (3.4-5.0) L 12/03/18 06:24 Lipase 163 U/L (73-393) 12/02/18 23:30 Urine Color Yellow 12/03/18 03:45 Urine Appearance Clear 12/03/18 03:45 Urine pH 5.0 (5.0-8.0) 12/03/18 03:45 Ur Specific [place] 1.013 (1.010-1.035) 12/03/18 03:45 Urine Protein Negative (NEGATIVE) 12/03/18 03:45 Urine Glucose (UA) Negative (NEGATIVE) 12/03/18 03:45 Urine Ketones Negative (NEGATIVE) 12/03/18 03:45 Urine Blood Trace (NEGATIVE) 12/03/18 03:45 Urine Nitrite Negative (NEGATIVE) 12/03/18 03:45 Urine Bilirubin Negative (NEGATIVE) 12/03/18 03:45 Urine Urobilinogen 0.2 mg/dL (0.2-1.0) 12/03/18 03:45 Ur Leukocyte Esterase Negative (NEGATIVE) 12/03/18 03:45 Urine WBC (Auto) 1 /hpf (0-5) 12/03/18 03:45 Urine RBC (Auto) 2 /hpf (0-4) 12/03/18 03:45 Urine Casts (Auto) 1 /lpf (0-8) 12/03/18 03:45 U Epithel Cells (Auto) 1.0 /HPF (0-5/HPF) 12/03/18 03:45 Urine Bacteria (Auto) 54.0 /hpf (NEGATIVE) 12/03/18 03:45 Active Medications Current Medications Atorvastatin Calcium (Lipitor -) 10 mg PO HS HIOWT Brimonidine Tartrate (Alphagan 0.2% -) 1 drop OU BID [facility] Clopidogrel Bisulfate (Plavix -) 75 mg PO DAILY [facility] Dorzolamide HCl (Trusopt 2%) 1 drop OU BID [facility] Last Admin: 12/03/18 14:38 Dose: 1 drop Sodium Chloride (Normal Saline -) 1,000 mls @ 75 mls/hr IV ASDIR [facility] Last Admin: 12/03/18 06:52 Dose: 75 mls/hr Levothyroxine Sodium (Synthroid -) 75 mcg PO 0700 [facility] Losartan Potassium (Losartan Potassium) 100 mg PO DAILY [facility] Last Admin: 12/03/18 14:40 Dose: Not Given Metoprolol Succinate (Toprol Xl -) 25 mg PO DAILY [facility] Last Admin: 12/03/18 14:38 Dose: Not Given Morphine Sulfate (Morphine Sulfate) 2 mg IVPUSH Q6H PRN PRN Reason: PAIN LEVEL 6-10 Non-Formulary Medication (Raloxifene Hcl [Raloxifene Hcl]) 60 mg PO DAILY [facility] Ondansetron HCl (Zofran Injection) 4 mg IVPUSH Q6H PRN PRN Reason: NAUSEA Timolol Maleate (Timoptic 0.5%) 1 drop OU BID [facility] ASSESSMENT/PLAN: 78 y.o. F PMH HTN, HLD, hypothyroidism s/p thyroidectomy presented with diffuse abdominal pain & NBNB emesis. Found to have partial SBO with possible transition point on CT abd. #Partial SBO vs. ileus -Hx of lap arvin in early -CT abd: Mildly dilated jejunal loops across the upper abdomen. The stomach is also distended. This appearance suggests a low-grade, partial SBO. No evidence of colitis. -CXR: 2 views of the abdomen reveal clear lung bases, scoliosis with convexity to the left, degenerative changes, right upper quadrant clips and clear lung bases. There are pelvic phleboliths. There is some retained stool. There are some scattered air-fluid levels in the upper abdomen in the upright position. A CT scan from 12/03/2018 showed suggestion of a partial SBO. This could still be present. There is no sign of free air. Pneumatosis is not seen. Correlation recommended -Bowel rest -IVF- NS -NPO -Zofran 4mg IV q6h PRN -Morphine 2mg IV q6h PRN -Surgery (Dr. Gtz) on board #Anemia -Hgb 9 -F/u repeat CBC, iron, TIBC, ferritin -FOBT: pending. No joaquín blood on rectal exam #HTN -Holding HCTZ -Losartan 100 PO daily -Metoprolol succinate 25mg PO daily #HLD -Atorvastatin 10mg PO #DVT PPX -SCDs #Code status FULL CODE Visit type - Emergency Visit Emergency Visit: No - New Patient This patient is new to me today: No - Critical Care Critical Care patient: No ATTENDING PHYSICIAN STATEMENT I saw and evaluated the patient. I reviewed the resident's note and discussed the case with the resident. I agree with the resident's findings and plan as documented. SUBJECTIVE: OBJECTIVE: ASSESSMENT AND PLAN:
--- NOTE | 2018-12-03 13:39 | EKG ---
Test Reason : Blood Pressure : / mmHG Vent. Rate : 068 BPM Atrial Rate : 068 BPM P-R Int : 184 ms QRS Dur : 078 ms QT Int : 372 ms P-R-T Axes : 080 050 025 degrees QTc Int : 395 ms POOR DATA QUALITY, INTERPRETATION MAY BE ADVERSELY AFFECTED NORMAL SINUS RHYTHM POSSIBLE LEFT ATRIAL ENLARGEMENT NONSPECIFIC ST AND T WAVE ABNORMALITY ABNORMAL ECG NO PREVIOUS ECGS AVAILABLE Confirmed by Chandler Ayala MD ([id number]) on 12/03/2018 1:39:11 PM Referred By: Confirmed By:Chandler Ayala MD
[2018-12-03] MEDS ORDERED: HYDROCHLOROTHIAZIDE 25 MG TABLET (FP) PO SCH (13:45)
[2018-12-03] MEDS ORDERED: LOSARTAN POTASSIUM 100 MG TABLET PO SCH (13:45)
[2018-12-03] MEDS: LEVOTHYROXINE NA 75 MCG TABLET (FP) PO SCH (14:00)
[2018-12-03] MEDS: CLOPIDOGREL BISULFATE 75 MG TABLET (FP) PO SCH (14:00)
[2018-12-03] MEDS: DORZOLAMIDE 2% HCL OPHTHALMIC SOLUTION 10 ML BOTTLE OU SCH ×2 (14:38→23:00)
[2018-12-03] MEDS: metoPROLOL SUCCINATE 25 MG TAB.SR.24H (FP) PO SCH (14:38)
--- NOTE | 2018-12-03 15:04 | PN ---
Teaching Attending Note Name of Resident: Bere Navarro ATTENDING PHYSICIAN STATEMENT I saw and evaluated the patient. I reviewed the resident's note and discussed the case with the resident. I agree with the resident's findings and plan as documented. SUBJECTIVE:asymptomatic. states pain has resolved. +flatus. denies Cp, SOB, fever, chills, N/V/C/D, no BM since arrival. had normal colonscopy last year. done routine screening OBJECTIVE: Last Vital Signs Temp Pulse Resp BP Pulse Ox 98.0 F 49 L 18 117/48 L 99 12/03/18 10:54 12/03/18 10:54 12/03/18 10:54 12/03/18 10:54 12/03/18 10:54 General NAD CV S1 S2 RRR no murmur/rub/gallop lungs CTA B/l no wheezing/rales/rhonchi Abdomen soft NT/ND normal BS. no rebound or guarding ASSESSMENT AND PLAN: 78yo F with PMH HTN, hypothyroid s/p thyroidectomy, and laprascopic cholecystectomy almost 10 years ago presenting with abdominal pain wiuth nausea and vomiting and suggestion of SBO on imaging 1. SBO- clinically improved. AXR showing some air fluid levels but no free air under the diaphragm. nothing seen on physical exam. will cont with supportive care. NPO, IVF and pain control. repeat AXR tomorrow if conitnues to improve consider advancing diet. will hold on NGT placement at this time as clinically stable. Surgery on board 2. Normocytic anemia- no signs of bleeding. will repeat CBC later today. check iron studies 3. KELI- due to dehydration. hold diuretic. IVF. trend. 4. Hypothyroid- on LT4 5. HTN- controlled. monitor while diuretic being held 6. DVT ppx- SCD
[2018-12-03 17:21] LABS: BASO % 0.5 % (0-2.0); EOS % 0.6 % (0-4.5); HEMATOCRIT 27.9 % (32.4-45.2); HEMOGLOBIN 9.1 GM/dL (10.7-15.3); LYMPH % 34.2 % (8-40); MCH 28.6 pg (25.7-33.7); MCHC 32.6 g/dl (32.0-36.0); MEAN CELL VOLUME 87.6 fl (80-96); MONO % 12.5 % (3.8-10.2); NEUT % 52.2 % (42.8-82.8); PLATELET COUNT 159 K/MM3 (134-434); RBC 3.18 M/mm3 (3.60-5.2); RDW 14.2 % (11.6-15.6); WHITE BLOOD COUNT 6.3 K/mm3 (4.0-10.0)
[2018-12-03] MEDS ORDERED: CLOPIDOGREL BISULFATE 75 MG TABLET (FP) ONE (17:27)
[2018-12-03] MEDS ORDERED: LEVOTHYROXINE NA 25 MCG TABLET (FP) ONE (17:27)
[2018-12-03] MEDS ORDERED: ATORVASTATIN CA 10 MG TABLET (FP) PO SCH (22:00)
[2018-12-03] MEDS ORDERED: LOSARTAN POTASSIUM 50 MG TABLET (FP) PO SCH (22:36)
[2018-12-03] MEDS: BRIMONIDINE TARTRATE 0.2% OPHTHALMIC 5 ML BOTTLE OU SCH (23:00)
[2018-12-03] MEDS: TIMOLOL 0.5% OPHTHALMIC SOL 5 ML BOTTLE OU SCH (23:00)
[2018-12-04] MEDS: LEVOTHYROXINE NA 75 MCG TABLET (FP) PO SCH (06:39)
[2018-12-04] MEDS: SODIUM CHLORIDE 1,000 ML IV SCH (06:41)
--- NOTE | 2018-12-04 06:45 | PN ---
Physical Exam: SUBJECTIVE: Patient seen and examined OBJECTIVE: Vital Signs Period Temp Pulse Resp BP Sys/Arroyo Pulse Ox Last 24 Hr 97.4 F-98.1 F 45-52 18-18 89-137/46-67 98-100 GENERAL: The patient is awake, alert, and fully oriented, in no acute distress. HEAD: Normal with no signs of trauma. EYES: PERRL, extraocular movements intact, sclera anicteric, conjunctiva clear. No ptosis. ENT: Ears normal, nares patent, oropharynx clear without exudates, moist mucous membranes. NECK: Trachea midline, full range of motion, supple. LUNGS: Breath sounds equal, clear to auscultation bilaterally, no wheezes, no crackles, no accessory muscle use. HEART: Regular rate and rhythm, S1, S2 without murmur, rub or gallop. ABDOMEN: Soft, nontender, nondistended, normoactive bowel sounds, no guarding, no rebound, no hepatosplenomegaly, no masses. EXTREMITIES: 2+ pulses, warm, well-perfused, no edema. NEUROLOGICAL: Cranial nerves II through XII grossly intact. Normal speech, gait not observed. PSYCH: Normal mood, normal affect. SKIN: Warm, dry, normal turgor, no rashes or lesions noted Laboratory Results - last 24 hr 12/03/18 12/03/18 12/03/18 06:24 07:45 07:45 WBC 7.1 RBC 3.12 L Hgb 9.0 L Hct 27.2 L MCV 87.1 MCH 28.8 MCHC 33.1 RDW 13.9 Plt Count 169 MPV 8.2 Absolute Neuts (auto) Neutrophils % Lymphocytes % Monocytes % Eosinophils % Basophils % Nucleated RBC % PT with INR 13.90 H INR 1.18 H PTT (Actin FS) 32.0 Sodium 143 Potassium 3.5 Chloride 110 H Carbon Dioxide 27 Anion Gap 6 L BUN 26.0 H Creatinine 1.1 Est GFR (CKD-EPI)AfAm 54.91 Est GFR (CKD-EPI)NonAf 47.38 Random Glucose 125 H Hemoglobin A1c % Calcium 9.1 Magnesium 2.1 Iron TIBC Iron Saturation Unsaturated IBC Ferritin Total Bilirubin 0.2 AST 15 ALT 18 Alkaline Phosphatase 64 Total Protein 6.4 Albumin 3.3 L 07/23/19 07/23/19 07/23/19 07:45 15:48 15:48 WBC 6.3 RBC 3.18 L Hgb 9.1 L Hct 27.9 L MCV 87.6 MCH 28.6 MCHC 32.6 RDW 14.2 Plt Count 159 MPV 9.0 Absolute Neuts (auto) 3.3 Neutrophils % 52.2 D Lymphocytes % 34.2 D Monocytes % 12.5 H D Eosinophils % 0.6 D Basophils % 0.5 Nucleated RBC % 0 PT with INR INR PTT (Actin FS) Sodium Potassium Chloride Carbon Dioxide Anion Gap BUN Creatinine Est GFR (CKD-EPI)AfAm Est GFR (CKD-EPI)NonAf Random Glucose Hemoglobin A1c % 5.2 Calcium Magnesium Iron 91 TIBC 199 L Iron Saturation 45 H Unsaturated IBC 108 L Ferritin 131.7 Total Bilirubin AST ALT Alkaline Phosphatase Total Protein Albumin Active Medications Generic Name Dose Route Start Last Admin Trade Name Freq PRN Reason Stop Dose Admin Atorvastatin Calcium 10 mg 12/03/18 22:00 12/03/18 21:40 Lipitor - PO 10 mg HS [facility] Administration Brimonidine Tartrate 1 drop 12/03/18 22:00 12/03/18 23:00 Alphagan 0.2% - OU 1 drop BID [facility] Administration Clopidogrel Bisulfate 75 mg 12/03/18 13:30 12/03/18 14:00 Plavix - PO 75 mg DAILY [facility] Administration Dorzolamide HCl 1 drop 12/03/18 13:30 12/03/18 23:00 Trusopt 2% OU 1 drop BID [facility] Administration Sodium Chloride 1,000 mls @ 75 mls/hr 12/03/18 06:30 12/03/18 18:05 Normal Saline - IV 75 mls/hr ASDIR [facility] Administration Levothyroxine Sodium 75 mcg 12/03/18 13:30 12/03/18 14:00 Synthroid - PO 75 mcg 0700 [facility] Administration Losartan Potassium 100 mg 12/03/18 22:36 Cozaar - PO DAILY [facility] Metoprolol Succinate 25 mg 12/03/18 13:30 12/03/18 14:38 Toprol Xl - PO Not Given DAILY [facility] Morphine Sulfate 2 mg 12/03/18 06:23 Morphine Sulfate IVPUSH Q6H PRN PAIN LEVEL 6-10 Non-Formulary Medication 60 mg 12/03/18 13:30 Raloxifene Hcl [Raloxifene Hcl] PO DAILY [facility] Ondansetron HCl 4 mg 12/03/18 06:25 Zofran Injection IVPUSH Q6H PRN NAUSEA Timolol Maleate 1 drop 12/03/18 22:00 12/03/18 23:00 Timoptic 0.5% OU 1 drop BID [facility] Administration ASSESSMENT/PLAN: ATTENDING PHYSICIAN STATEMENT I saw and evaluated the patient. I reviewed the resident's note and discussed the case with the resident. I agree with the resident's findings and plan as documented. SUBJECTIVE: OBJECTIVE: ASSESSMENT AND PLAN:
[2018-12-04 08:53] LABS: ALBUMIN 3.1 g/dl (3.4-5.0); BILIRUBIN,TOTAL 0.4 mg/dL (0.2-1); BLOOD UREA NITROGEN 25.7 mg/dL (7-18); CALCIUM 8.7 mg/dL (8.5-10.1); CREATININE 0.9 mg/dL (0.55-1.3); MAGNESIUM 1.8 mg/dL (1.8-2.4); PHOSPHOROUS 3.1 mg/dL (2.5-4.9); POTASSIUM 3.8 mmol/L (3.5-5.1); TOT PROT 5.8 g/dl (6.4-8.2)
[2018-12-04 09:03] LABS: BASO % 0.5 % (0-2.0); EOS % 0.8 % (0-4.5); HEMATOCRIT 26.8 % (32.4-45.2); LYMPH % 31.8 % (8-40); MCHC 33.4 g/dl (32.0-36.0); MEAN PLT VOLUME 8.9 fl (7.5-11.1); MONO % 9.6 % (3.8-10.2); NEUT % 57.3 % (42.8-82.8); PLATELET COUNT 165 K/MM3 (134-434); RBC 3.09 M/mm3 (3.60-5.2); RDW 14.1 % (11.6-15.6); WHITE BLOOD COUNT 4.9 K/mm3 (4.0-10.0)
[2018-12-04] MEDS ORDERED: LOSARTAN POTASSIUM 100 MG TABLET PO SCH (10:00)
[2018-12-04] MEDS ORDERED: HYDROCHLOROTHIAZIDE 25 MG TABLET (FP) PO SCH (10:00)
[2018-12-04] MEDS: metoPROLOL SUCCINATE 25 MG TAB.SR.24H (FP) PO SCH (10:26)
[2018-12-04] MEDS: CLOPIDOGREL BISULFATE 75 MG TABLET (FP) PO SCH (10:26)
[2018-12-04] MEDS: BRIMONIDINE TARTRATE 0.2% OPHTHALMIC 5 ML BOTTLE OU SCH (10:27)
[2018-12-04] MEDS: DORZOLAMIDE 2% HCL OPHTHALMIC SOLUTION 10 ML BOTTLE OU SCH (10:27)
[2018-12-04] MEDS: TIMOLOL 0.5% OPHTHALMIC SOL 5 ML BOTTLE OU SCH (10:27)
--- NOTE | 2018-12-04 11:09 | PN ---
Teaching Attending Note Name of Resident: Bere Navarro ATTENDING PHYSICIAN STATEMENT I saw and evaluated the patient. I reviewed the resident's note and discussed the case with the resident. I agree with the resident's findings and plan as documented. SUBJECTIVE:pt was down for XRay when went to evaluate. but told she had no more pain. no Nausea or vomiting. +flatus OBJECTIVE: Last Vital Signs Temp Pulse Resp BP Pulse Ox 98.1 F 48 L 18 111/54 L 98 12/04/18 06:00 12/04/18 06:00 12/04/18 06:00 12/04/18 06:00 12/03/18 16:27 not evaluated ASSESSMENT AND PLAN: 78yo F with PMH HTN, hypothyroid s/p thyroidectomy, and laprascopic cholecystectomy almost 10 years ago presenting with abdominal pain wiuth nausea and vomiting and suggestion of SBO on imaging 1. SBO- clinically improved. down for repeat AXR at this time. if improved will advance to clears. and slowly advance as tolerated. Surgery on board 2. Normocytic anemia- no signs of bleeding. hgb stable. no indication for transfusion 3. KELI- due to dehydration. resolved. will d/c IVF once tolerating diet. will hold diuretic at this time. 4. Hypothyroid- on LT4 5. HTN- controlled. monitor while diuretic being held 6. DVT ppx- SCD
--- NOTE | 2018-12-04 12:24 | PN ---
Progress Note (short form) - Note Progress Note: Pt family at bedside today. The patient states that she is passing flatus yesterday and today. No BM. No abd pain, No nausea or emesis. Vital Signs Period Temp Pulse Resp BP Sys/Arroyo Pulse Ox Last 24 Hr 97.4 F-98.2 F 45-55 17-18 89-137/46-67 98-100 GEN: A&0x3, NAD ABD: soft, non-distended, non-tender CBC, BMP 12/04/18 06:48 12/04/18 06:48 AXR: stool and air in the colon, some air in the small bowel. A/p: 78 yo female with resolving SBO D/w Dr. Gtz, to begin clears and advance diet as tolerated
--- NOTE | 2018-12-04 14:44 | PN ---
Physical Exam: SUBJECTIVE: Patient seen and examined. Repeat abd XR shows no significant changes from yesterday. Denies bowel movements today but is passing flatus. Denies N/V fevers/ chills/ abdominal pain. ADvancing to clears, will advance diet as tolerated. OBJECTIVE: Vital Signs Period Temp Pulse Resp BP Sys/Arroyo Pulse Ox Last 24 Hr 97.4 F-98.2 F 45-55 17-18 92-137/46-67 98 GENERAL: The patient is awake, alert, and fully oriented, in no acute distress. LUNGS: Breath sounds equal, clear to auscultation bilaterally, no wheezes, no crackles, no accessory muscle use. HEART: Regular rate and rhythm, S1, S2 without murmur, rub or gallop. ABDOMEN: No tenderness to palpation. Soft, nondistended, normoactive bowel sounds, no guarding, no masses. EXTREMITIES: 2+ pulses, warm, well-perfused, no edema. SKIN: Warm, dry, normal turgor, no rashes or lesions noted Laboratory Results - last 24 hr Laboratory Last Values WBC 4.9 K/mm3 (4.0-10.0) 12/04/18 06:48 RBC 3.09 M/mm3 (3.60-5.2) L 12/04/18 06:48 Hgb 9.0 GM/dL (10.7-15.3) L 12/04/18 06:48 Hct 26.8 % (32.4-45.2) L 12/04/18 06:48 MCV 87.0 fl (80-96) 12/04/18 06:48 MCH 29.0 pg (25.7-33.7) 12/04/18 06:48 MCHC 33.4 g/dl (32.0-36.0) 12/04/18 06:48 RDW 14.1 % (11.6-15.6) 12/04/18 06:48 Plt Count 165 K/MM3 (134-434) 12/04/18 06:48 MPV 8.9 fl (7.5-11.1) 12/04/18 06:48 Absolute Neuts (auto) 2.8 K/mm3 (1.5-8.0) 12/04/18 06:48 Neutrophils % 57.3 % (42.8-82.8) 12/04/18 06:48 Lymphocytes % 31.8 % (8-40) 12/04/18 06:48 Monocytes % 9.6 % (3.8-10.2) 12/04/18 06:48 Eosinophils % 0.8 % (0-4.5) 12/04/18 06:48 Basophils % 0.5 % (0-2.0) 12/04/18 06:48 Nucleated RBC % 0 % (0-0) 12/04/18 06:48 PT with INR 13.90 SEC (9.7-13.0) H 12/03/18 07:45 INR 1.18 (0.83-1.09) H 12/03/18 07:45 PTT (Actin FS) 32.0 SECONDS (25.2-36.5) 12/03/18 07:45 Sodium 144 mmol/L (136-145) 12/04/18 06:48 Potassium 3.8 mmol/L (3.5-5.1) 12/04/18 06:48 Chloride 112 mmol/L (98-107) H 12/04/18 06:48 Carbon Dioxide 22 mmol/L (21-32) 12/04/18 06:48 Anion Gap 10 MMOL/L (8-16) 12/04/18 06:48 BUN 25.7 mg/dL (7-18) H 12/04/18 06:48 Creatinine 0.9 mg/dL (0.55-1.3) 12/04/18 06:48 Est GFR (CKD-EPI)AfAm 69.99 12/04/18 06:48 Est GFR (CKD-EPI)NonAf 60.39 12/04/18 06:48 Random Glucose 58 mg/dL (74-106) L 12/04/18 06:48 Hemoglobin A1c % 5.2 % (4.2-6.3) 12/03/18 07:45 Lactic Acid 1.5 mmol/L (0.4-2.0) 12/03/18 05:30 Calcium 8.7 mg/dL (8.5-10.1) 12/04/18 06:48 Phosphorus 3.1 mg/dL (2.5-4.9) 12/04/18 06:48 Magnesium 1.8 mg/dL (1.8-2.4) 12/04/18 06:48 Iron 91 ug/dL (50-175) 12/03/18 15:48 TIBC 199 ug/dL (250-450) L 12/03/18 15:48 Iron Saturation 45 % (17.5-39) H 12/03/18 15:48 Unsaturated IBC 108 ug/dL (200-275) L 12/03/18 15:48 Ferritin 131.7 ng/ml (8-388) 12/03/18 15:48 Total Bilirubin 0.4 mg/dL (0.2-1) 12/04/18 06:48 AST 20 U/L (15-37) 12/04/18 06:48 ALT 17 U/L (13-61) 12/04/18 06:48 Alkaline Phosphatase 61 U/L (45-117) 12/04/18 06:48 Creatine Kinase 149 U/L (26-192) 12/02/18 23:30 Troponin I < 0.02 ng/ml (0.00-0.05) 12/02/18 23:30 Total Protein 5.8 g/dl (6.4-8.2) L 12/04/18 06:48 Albumin 3.1 g/dl (3.4-5.0) L 12/04/18 06:48 Lipase 163 U/L (73-393) 12/02/18 23:30 Urine Color Yellow 12/03/18 03:45 Urine Appearance Clear 12/03/18 03:45 Urine pH 5.0 (5.0-8.0) 12/03/18 03:45 Ur Specific [place] 1.013 (1.010-1.035) 12/03/18 03:45 Urine Protein Negative (NEGATIVE) 12/03/18 03:45 Urine Glucose (UA) Negative (NEGATIVE) 12/03/18 03:45 Urine Ketones Negative (NEGATIVE) 12/03/18 03:45 Urine Blood Trace (NEGATIVE) 12/03/18 03:45 Urine Nitrite Negative (NEGATIVE) 12/03/18 03:45 Urine Bilirubin Negative (NEGATIVE) 12/03/18 03:45 Urine Urobilinogen 0.2 mg/dL (0.2-1.0) 12/03/18 03:45 Ur Leukocyte Esterase Negative (NEGATIVE) 12/03/18 03:45 Urine WBC (Auto) 1 /hpf (0-5) 12/03/18 03:45 Urine RBC (Auto) 2 /hpf (0-4) 12/03/18 03:45 Urine Casts (Auto) 1 /lpf (0-8) 12/03/18 03:45 U Epithel Cells (Auto) 1.0 /HPF (0-5/HPF) 12/03/18 03:45 Urine Bacteria (Auto) 54.0 /hpf (NEGATIVE) 12/03/18 03:45 Active Medications Current Medications Atorvastatin Calcium (Lipitor -) 10 mg PO HS [facility] Last Admin: 12/03/18 21:40 Dose: 10 mg Brimonidine Tartrate (Alphagan 0.2% -) 1 drop OU BID [facility] Last Admin: 12/04/18 10:27 Dose: 1 drop Clopidogrel Bisulfate (Plavix -) 75 mg PO DAILY [facility] Last Admin: 12/04/18 10:26 Dose: 75 mg Dorzolamide HCl (Trusopt 2%) 1 drop OU BID [facility] Last Admin: 12/04/18 10:27 Dose: 1 drop Sodium Chloride (Normal Saline -) 1,000 mls @ 75 mls/hr IV ASDIR [facility] Last Admin: 12/04/18 06:41 Dose: 75 mls/hr Levothyroxine Sodium (Synthroid -) 75 mcg PO 0700 [facility] Last Admin: 12/04/18 06:39 Dose: 75 mcg Losartan Potassium (Cozaar -) 100 mg PO DAILY [facility] Last Admin: 12/04/18 10:26 Dose: 100 mg Metoprolol Succinate (Toprol Xl -) 25 mg PO DAILY [facility] Last Admin: 12/04/18 10:26 Dose: 25 mg Morphine Sulfate (Morphine Sulfate) 2 mg IVPUSH Q6H PRN PRN Reason: PAIN LEVEL 6-10 Non-Formulary Medication (Raloxifene Hcl [Raloxifene Hcl]) 60 mg PO DAILY [facility] Ondansetron HCl (Zofran Injection) 4 mg IVPUSH Q6H PRN PRN Reason: NAUSEA Timolol Maleate (Timoptic 0.5%) 1 drop OU BID [facility] Last Admin: 12/04/18 10:27 Dose: 1 drop Imaging: -CT abd: Mildly dilated jejunal loops across the upper abdomen. The stomach is also distended. This appearance suggests a low-grade, partial SBO. No evidence of colitis. -CXR: 2 views of the abdomen reveal clear lung bases, scoliosis with convexity to the left, degenerative changes, right upper quadrant clips and clear lung bases. There are pelvic phleboliths. There is some retained stool. There are some scattered air-fluid levels in the upper abdomen in the upright position. A CT scan from 12/03/2018 showed suggestion of a partial SBO. This could still be present. There is no sign of free air. Pneumatosis is not seen. Correlation recommended ASSESSMENT/PLAN: 78 y.o. F PMH HTN, HLD, hypothyroidism s/p thyroidectomy presented with diffuse abdominal pain & NBNB emesis. Found to have partial SBO with possible transition point on CT abd. #Partial SBO vs. ileus -Hx of lap arvin in early -CT abd: low-grade, partial SBO. -Abd XR 12/04: retained stool, air fluid levels, air in sm bowel & colon -IVF- NS -Advancing to clears, ADAT -Zofran 4mg IV q6h PRN -Morphine 2mg IV q6h PRN -Surgery (Dr. Gtz) on board #Anemia -Hgb 9 -Iron 91, TIBC 199, Iron sat 45, ferritin 131.7 -No joaquín blood on rectal exam #HTN -Holding HCTZ -Losartan 100 PO daily -Metoprolol succinate 25mg PO daily #KELI -Cr improved, 0.9 today -Holding HCTZ -D/c IVF once tolerating diet #HLD -Atorvastatin 10mg PO #DVT PPX -SCDs #Code status FULL CODE Visit type - Emergency Visit Emergency Visit: No - New Patient This patient is new to me today: No - Critical Care Critical Care patient: No ATTENDING PHYSICIAN STATEMENT I saw and evaluated the patient. I reviewed the resident's note and discussed the case with the resident. I agree with the resident's findings and plan as documented. SUBJECTIVE: OBJECTIVE: ASSESSMENT AND PLAN:
[2018-12-04 20:31] VITALS: BP 123/52; PULSE 54; TEMP 98.4
--- NOTE | 2018-12-05 18:26 | DS ---
Physical Exam: SUBJECTIVE: Patient seen and examined. In no acute distress. Tolerating PO diet. Passing flatus. Denies N/V fevers/ chills/ abdominal pain. OBJECTIVE: Vital Signs Period Temp Pulse Resp BP Sys/Arroyo Pulse Ox Last 24 Hr 98.4 F 54 18 123/52 PHYSICAL EXAM GENERAL: The patient is awake, alert, and fully oriented, in no acute distress. LUNGS: Breath sounds equal, clear to auscultation bilaterally, no wheezes, no crackles, no accessory muscle use. HEART: Regular rate and rhythm, S1, S2 without murmur, rub or gallop. ABDOMEN: No tenderness to palpation. Soft, nondistended, normoactive bowel sounds, no guarding, no masses. EXTREMITIES: 2+ pulses, warm, well-perfused, no edema. SKIN: Warm, dry, normal turgor, no rashes or lesions noted LABS Laboratory Last Values WBC 4.9 K/mm3 (4.0-10.0) 12/04/18 06:48 RBC 3.09 M/mm3 (3.60-5.2) L 12/04/18 06:48 Hgb 9.0 GM/dL (10.7-15.3) L 12/04/18 06:48 Hct 26.8 % (32.4-45.2) L 12/04/18 06:48 MCV 87.0 fl (80-96) 12/04/18 06:48 MCH 29.0 pg (25.7-33.7) 12/04/18 06:48 MCHC 33.4 g/dl (32.0-36.0) 12/04/18 06:48 RDW 14.1 % (11.6-15.6) 12/04/18 06:48 Plt Count 165 K/MM3 (134-434) 12/04/18 06:48 MPV 8.9 fl (7.5-11.1) 12/04/18 06:48 Absolute Neuts (auto) 2.8 K/mm3 (1.5-8.0) 12/04/18 06:48 Neutrophils % 57.3 % (42.8-82.8) 12/04/18 06:48 Lymphocytes % 31.8 % (8-40) 12/04/18 06:48 Monocytes % 9.6 % (3.8-10.2) 12/04/18 06:48 Eosinophils % 0.8 % (0-4.5) 12/04/18 06:48 Basophils % 0.5 % (0-2.0) 12/04/18 06:48 Nucleated RBC % 0 % (0-0) 12/04/18 06:48 PT with INR 13.90 SEC (9.7-13.0) H 12/03/18 07:45 INR 1.18 (0.83-1.09) H 12/03/18 07:45 PTT (Actin FS) 32.0 SECONDS (25.2-36.5) 12/03/18 07:45 Sodium 144 mmol/L (136-145) 12/04/18 06:48 Potassium 3.8 mmol/L (3.5-5.1) 12/04/18 06:48 Chloride 112 mmol/L (98-107) H 12/04/18 06:48 Carbon Dioxide 22 mmol/L (21-32) 12/04/18 06:48 Anion Gap 10 MMOL/L (8-16) 12/04/18 06:48 BUN 25.7 mg/dL (7-18) H 12/04/18 06:48 Creatinine 0.9 mg/dL (0.55-1.3) 12/04/18 06:48 Est GFR (CKD-EPI)AfAm 69.99 12/04/18 06:48 Est GFR (CKD-EPI)NonAf 60.39 12/04/18 06:48 Random Glucose 58 mg/dL (74-106) L 12/04/18 06:48 Hemoglobin A1c % 5.2 % (4.2-6.3) 12/03/18 07:45 Lactic Acid 1.5 mmol/L (0.4-2.0) 12/03/18 05:30 Calcium 8.7 mg/dL (8.5-10.1) 12/04/18 06:48 Phosphorus 3.1 mg/dL (2.5-4.9) 12/04/18 06:48 Magnesium 1.8 mg/dL (1.8-2.4) 12/04/18 06:48 Iron 91 ug/dL (50-175) 12/03/18 15:48 TIBC 199 ug/dL (250-450) L 12/03/18 15:48 Iron Saturation 45 % (17.5-39) H 12/03/18 15:48 Unsaturated IBC 108 ug/dL (200-275) L 12/03/18 15:48 Ferritin 131.7 ng/ml (8-388) 12/03/18 15:48 Total Bilirubin 0.4 mg/dL (0.2-1) 12/04/18 06:48 AST 20 U/L (15-37) 12/04/18 06:48 ALT 17 U/L (13-61) 12/04/18 06:48 Alkaline Phosphatase 61 U/L (45-117) 12/04/18 06:48 Creatine Kinase 149 U/L (26-192) 12/02/18 23:30 Troponin I < 0.02 ng/ml (0.00-0.05) 12/02/18 23:30 Total Protein 5.8 g/dl (6.4-8.2) L 12/04/18 06:48 Albumin 3.1 g/dl (3.4-5.0) L 12/04/18 06:48 Lipase 163 U/L (73-393) 12/02/18 23:30 Urine Color Yellow 12/03/18 03:45 Urine Appearance Clear 12/03/18 03:45 Urine pH 5.0 (5.0-8.0) 12/03/18 03:45 Ur Specific [place] 1.013 (1.010-1.035) 12/03/18 03:45 Urine Protein Negative (NEGATIVE) 12/03/18 03:45 Urine Glucose (UA) Negative (NEGATIVE) 12/03/18 03:45 Urine Ketones Negative (NEGATIVE) 12/03/18 03:45 Urine Blood Trace (NEGATIVE) 12/03/18 03:45 Urine Nitrite Negative (NEGATIVE) 12/03/18 03:45 Urine Bilirubin Negative (NEGATIVE) 12/03/18 03:45 Urine Urobilinogen 0.2 mg/dL (0.2-1.0) 12/03/18 03:45 Ur Leukocyte Esterase Negative (NEGATIVE) 12/03/18 03:45 Urine WBC (Auto) 1 /hpf (0-5) 12/03/18 03:45 Urine RBC (Auto) 2 /hpf (0-4) 12/03/18 03:45 Urine Casts (Auto) 1 /lpf (0-8) 12/03/18 03:45 U Epithel Cells (Auto) 1.0 /HPF (0-5/HPF) 12/03/18 03:45 Urine Bacteria (Auto) 54.0 /hpf (NEGATIVE) 12/03/18 03:45 Stool Occult Blood Positive (NEGATIVE) 12/04/18 13:20 HOSPITAL COURSE: 78 y.o. F PMH HTN, HLD, hypothyroidism s/p thyroidectomy presented with diffuse abdominal pain & NBNB emesis. Found to have partial SBO with possible transition point on CT abd. Managed conservatively with NPO, IVF and bowel rest. Patient doing well, advanced diet and tolerating with no complaints. Repeat abdominal imaging showed improvement of original abd XR. Patient is hemodynamically stable. Date of Admission:12/03/18 Imaging: CT abd 12/04: 2 views of the abdomen reveal scoliosis with degenerative changes, large heart, clear lung bases and right upper quadrant clips. There is retained stool and air seen in the colon with some air in the small bowel. There are some scattered air-fluid levels. There is no significant change since 2018. A CT scan from 12/03/2018 showed a partial small bowel obstruction. This may still be evident though most likely is improving. -CT abd12/03 : Mildly dilated jejunal loops across the upper abdomen. The stomach is also distended. This appearance suggests a low-grade, partial SBO. No evidence of colitis. -CXR 12/03: 2 views of the abdomen reveal clear lung bases, scoliosis with convexity to the left, degenerative changes, right upper quadrant clips and clear lung bases. There are pelvic phleboliths. There is some retained stool. There are some scattered air-fluid levels in the upper abdomen in the upright position. A CT scan from 12/03/2018 showed suggestion of a partial SBO. This could still be present. There is no sign of free air. Pneumatosis is not seen. Correlation recommended Date of Discharge: 12/05/18 Minutes to complete discharge: 36 Discharge Summary Reason For Visit: VOMITING Condition: Stable - Instructions Diet, Activity, Other Instructions: Your visit: You presented to the hospital for abdominal pain. You had imaging done which revealed a partial blockage in your small intestine. You were treated with bowel rest and IV fluids. While you were here, you were found to have a mild anemia. Please follow this up with your primary care provider. You also had a slight decrease in kidney function. Please follow this up with your primary care provider where you should have labs drawn to assess your kidney function. Medication Changes: 1. Please do not continue to take your hydrochlorathiazide until you follow up with your PCP in 1 week. Follow up with the following physicians: 1. Primary care provider in 1 week. You may come to the [facility] [address] if you do not have a primary care provider. 2. Surgery (Dr. Gtz) in 1 week. 3. Gastroenterology (Dr. Pena) in 1 week. Further intructions: You are being discharged to your home. Please continue taking all other medications as prescribed. Please avoid taking NSAIDS (aspirin, naproxen, ibuprofen, etc.) as this may cause bleeding. Please continue to eat a healthy diet. Please return to the ER if you have any signs or symptoms of chest pain, shortness of breath, palpitations, confusion, dizziness, fevers, abdominal pain , fatigue, vomiting, severe constipation, diarrhea, rectal bleeding, muscle pains or weakness. Please return to the ER if symptoms persist, worsen, or new symptoms arise. Referrals: Elliott Gtz MD [Staff Physician] - Arely Almeida [Primary Care Provider] - Disposition: HOME - Home Medications Comprehensive Discharge Medication List: Ambulatory Orders Brimonidine Tartrate/Timolol [Combigan Eye Drops] 1 drop OU BID 11/14/18 Brinzolamide [Azopt] 1 drop OU BID 11/14/18 Clopidogrel Bisulfate [Clopidogrel] 75 mg PO DAILY 11/14/18 Levothyroxine [Synthroid -] 75 mcg PO DAILY 11/14/18 Losartan/Hydrochlorothiazide [Losartan-Hctz 100-25 mg Tab] 1 each PO DAILY 11/14 Meclizine HCl 12.5 mg PO DAILY 11/14/18 Metoprolol Succinate 25 mg PO DAILY 11/14/18 Raloxifene HCl 60 mg PO DAILY 11/14/18 Simvastatin 20 mg PO DAILY 11/14/18 This patient is new to me today: No Emergency Visit: No Critical Care patient: No - Discharge Referral Referred to [facility] No ATTENDING PHYSICIAN STATEMENT I saw and evaluated the patient. I reviewed the resident's note and discussed the case with the resident. I agree with the resident's findings and plan as documented. SUBJECTIVE: OBJECTIVE: ASSESSMENT AND PLAN:
== END 2018-12-04 20:34 | disposition home or self-care (01) | DRG 389 ==
LOC: JER 21:20 → JERBED 12-03 05:35 → J7W 12-03 17:39
PROVIDERS: ADMIT Internal Medicine; ATTEND Internal Medicine
DX: K56.600 Partial intestinal obstruction, unspecified as to cause (principal); N17.9 Acute kidney failure, unspecified; K56.7 Ileus, unspecified; I87.8 Other specified disorders of veins; D64.9 Anemia, unspecified; I10 Essential (primary) hypertension; E78.5 Hyperlipidemia, unspecified; K21.9 Gastro-esophageal reflux disease without esophagitis; E89.0 Postprocedural hypothyroidism; E86.0 Dehydration
CPT/HCPCS: 36415; 74019-TC-FY; 74176-TC; 80053; 81003; 82272; 82550; 82728; 83036; 83540; 83550; 83605; 83690; 83735; 84100; 84484; 85025; 85027; 85610; 85730; 93005; 93010; 99285-25; J7030